=== PATIENT | male | born 2000 | race African-American/Black ===

== ENCOUNTER 2022-11-24 23:35 | Emergency (ER) | payer OTHER ==
[~2022-11-24] VITALS: Ht 165.1 cm; Wt 70.0 kg
[2022-11-24 23:44] VITALS: BP 133/79; PULSE 61; RESP 14; TEMP 97.9
== END 2022-11-25 00:12 | disposition left against medical advice (07) ==
LOC: EMS 23:39
DX: Z53.21 Procedure and treatment not carried out due to patient leaving prior to being seen by health care provider (principal)
CPT/HCPCS: 99281; Z7502